=== PATIENT | male | born 1955 | race African-American/Black ===

== ENCOUNTER 2016-10-10 11:07 | Emergency (ER) | payer OTHER ==
[~2016-10-10] VITALS: Ht 175.3 cm; Wt 68.2 kg
[2016-10-10] MEDS ORDERED: PERTUSS(ACELL),DIPH,TET VAC/PF 0.5 ML VIAL IM ONE (13:30)
[2016-10-10] MEDS ORDERED: BACITRACIN 0.9 GM PACKET OINTMENT TP ONE (13:30)
[2016-10-10] MEDS ORDERED: IBUPROFEN 800 MG TABLET PO ONE (13:30)
[2016-10-10] MEDS ORDERED: LIDOCAINE HCL/PF 1% 2 ML VIAL IM ONE (14:30)
[2016-10-10] MEDS ORDERED: CefTRIAXone SODIUM 1 GM/VIAL IM ONE (14:30)
[2016-10-10 14:48] VITALS: BP 169/91
== END 2016-10-10 14:50 | disposition home or self-care (01) ==
LOC: EMS 11:14
DX: S60.041A Contusion of right ring finger without damage to nail, initial encounter (principal); L03.019 Cellulitis of unspecified finger; F17.210 Nicotine dependence, cigarettes, uncomplicated; X58.XXXA Exposure to other specified factors, initial encounter; Y93.89 Activity, other specified; Y92.89 Other specified places as the place of occurrence of the external cause; Y99.8 Other external cause status
CPT/HCPCS: 90471; 90715; 96372; 99284; J0696; J3490